=== PATIENT | male | born 1975 | race American Indian/Alaskan Native ===

== ENCOUNTER 2018-11-20 13:32 | Emergency (ER) | payer SELFPAY ==
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
[2018-11-20 15:07] VITALS: BP 181/112
--- NOTE | 2018-11-20 16:48 | XRay Report ---
PROCEDURE: XR KNEE 3V LT TECHNIQUE: Left knee, 3 views HISTORY: swelling/pain COMPARISONS: None available FINDINGS: There are tricompartmental osteoarthritic changes, with joint space narrowing and osteophyte formatio n. No fracture or dislocation is seen. Joint effusion is present. IMPRESSION: No fracture or dislocation. This document is electronically signed by Griselda Montemayor MD., November 20 2018 04:46:16 PM ET
[2018-11-20] MEDS ORDERED: MOTRIN PO ONE (17:08)
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
== END 2018-11-20 17:24 | disposition home or self-care (01) ==
LOC: ED 13:32
DX: M25.462 Effusion, left knee (principal)

== ENCOUNTER 2021-01-22 10:06 | Emergency (ER) | payer BC, OTHER ==
--- NOTE | 2021-01-22 10:47 | Emergency Department Report ---
ED Extremity Problem HPI - General Chief complaint: Extremity Injury, Lower Stated complaint: LT KNEE PAIN Time Seen by Provider: 01/22/21 10:46 Source: patient Mode of arrival: Ambulatory Limitations: No Limitations - History of Present Illness MD Complaint: joint swelling, joint paint -: Gradual Severity scale (0 -10): 8 - Related Data Previous Rx's Medication Instructions Recorded Last Taken Type Ibuprofen [Ibu] 800 mg PO Q8H PRN #20 tablet 11/20/18 Unknown Rx traMADoL [Ultram] 50 mg PO Q6HR PRN #12 tablet 11/20/18 Unknown Rx Allergies Allergy/AdvReac Type Severity Reaction Status Date / Time No Known Allergies Allergy Unverified 11/20/18 13:35 ED Review of Systems ROS: Stated complaint: LT KNEE PAIN Other details as noted in HPI ED Past Medical Hx - Past Medical History Previous Medical History?: No - Surgical History Past Surgical History?: No - Social History Smoking Status: Never Smoker - Medications Home Medications: Home Medications Medication Instructions Recorded Confirmed Last Taken Type Ibuprofen [Ibu] 800 mg PO Q8H PRN #20 tablet 11/20/18 Unknown Rx traMADoL [Ultram] 50 mg PO Q6HR PRN #12 tablet 11/20/18 Unknown Rx ED Physical Exam - General Limitations: No Limitations ED Course Vital Signs 01/22/21 10:40 Temperature 98.4 F Pulse Rate 71 Respiratory 20 Rate Blood Pressure 192/112 [Right] O2 Sat by Pulse 98 Oximetry Critical care attestation.: If time is entered above; I have spent that time in minutes in the direct care of this critically ill patient, excluding procedure time. ED Disposition Condition: Stable
--- NOTE | 2021-01-22 10:54 | Emergency Department Report ---
ED Extremity Problem HPI - General Chief complaint: Extremity Injury, Lower Stated complaint: LT KNEE PAIN Time Seen by Provider: 01/22/21 10:46 Source: patient Mode of arrival: Ambulatory Limitations: No Limitations - History of Present Illness Initial comments: 45-year-old male with a past medical history of hypertension, currently not compliant with his medication and obesity presents to the ER today with complaints of left knee pain. Patient states that the pain started about a week and a half ago. 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 He reports pain mainly to the anterior medial aspect of the knee as well as swelling. He states that the pain is worse with ambulation and flexion of the knee. He denies any prior issues with the knee in the past. Has not been taking anything for pain. MD Complaint: joint swelling, joint paint -: Gradual, week(s) (1.5 weeks ago ) Severity scale (0 -10): 8 - Related Data Previous Rx's Medication Instructions Recorded Last Taken Type Amlodipine Besylate [Norvasc] 5 mg PO DAILY #30 tablet 01/22/21 Unknown Rx Ketorolac [Toradol] 10 mg PO Q6H PRN #20 tablet 01/22/21 Unknown Rx Tramadol HCl/Acetaminophen 1 each PO Q6H PRN #12 tablet 01/22/21 Unknown Rx [Ultracet Tablet] Allergies Allergy/AdvReac Type Severity Reaction Status Date / Time No Known Allergies Allergy Unverified 11/20/18 13:35 ED Review of Systems ROS: Stated complaint: LT KNEE PAIN Other details as noted in HPI Comment: All other systems reviewed and negative Musculoskeletal: joint swelling, arthralgia ED Past Medical Hx - Past Medical History Previous Medical History?: No - Surgical History Past Surgical History?: No - Social History Smoking Status: Never Smoker - Medications Home Medications: Home Medications Medication Instructions Recorded Confirmed Last Taken Type Amlodipine Besylate [Norvasc] 5 mg PO DAILY #30 tablet 01/22/21 Unknown Rx Ketorolac [Toradol] 10 mg PO Q6H PRN #20 tablet 01/22/21 Unknown Rx Tramadol HCl/Acetaminophen 1 each PO Q6H PRN #12 tablet 01/22/21 Unknown Rx [Ultracet Tablet] ED Physical Exam - General Limitations: No Limitations General appearance: alert, in no apparent distress, obese - Head Head exam: Present: atraumatic, normocephalic, normal inspection - Eye Eye exam: Present: normal appearance, PERRL, EOMI Pupils: Present: normal accommodation - Neck Neck exam: Present: normal inspection, full ROM - Respiratory Respiratory exam: Absent: respiratory distress - Cardiovascular Cardiovascular Exam: Present: regular rate - Expanded Lower Extremity Exam Left Knee exam: Present: normal inspection, tenderness (Tenderness to palpation mainly anterior, posterior and medial knee), swelling (Very mild swelling compared to the right knee). Absent: full ROM (Flexion reduced to about 90 degrees secondary to pain), abrasion, laceration, ecchymosis, deformity, crepidus, dislocation, erythema Lower Leg exam: Present: normal inspection. Absent: tenderness, swelling, abrasion, laceration, ecchymosis, deformity, crepidus, dislocation, erythema, palpable cord, Kamron's sign Gait: Positive: observed and limited by pain - Neurological Exam Neurological exam: Present: alert, oriented X3, CN II-XII intact - Psychiatric Psychiatric exam: Present: normal affect, normal mood - Skin Skin exam: Present: intact ED Course Vital Signs 01/22/21 01/22/21 10:40 12:28 Temperature 98.4 F Pulse Rate 71 72 Respiratory 20 Rate Blood Pressure 192/112 197/106 [Right] O2 Sat by Pulse 98 Oximetry ED Medical Decision Making - Radiology Data Radiology results: report reviewed Patient: NORM OROSCO MR#: [id number] : 1975 Acct:[id number] Age/Sex: 45 / M ADM Date: 01/22/21 Loc: ED Attending Dr: Ordering Physician: NALDO SAUCEDA Date of Service: 01/22/21 Procedure(s): XR knee 3V LT Accession Number(s): [id number] cc: NALDO SAUCEDA Fluoro Time In Minutes: LEFT KNEE 3 VIEWS INDICATION: knee pain and swelling. COMPARISON: None. IMPRESSION: No acute osseous or soft tissue abnormality. Moderate osteoarthritic changes are identified in the medial compartment and patellofemoral compartment. A moderate joint effusion is noted on the lateral image. Signer Name: Musa Walker Jr, MD Signed: 01/22/2021 12:01 PM Workstation Name: [id number] Transcribed By: TTR Dictated By: MUSA WALKER JR, MD Electronically Authenticated By: MUSA WALKER JR, MD Signed Date/Time: 01/22/211200 DD/ 00 TD/TT: - Medical Decision Making 45-year-old male with a past medical history of hypertension, currently not compliant with his medication and obesity presents to the ER today with complaints of left knee pain. Patient states that the pain started about a week and a half ago. 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 He reports pain mainly to the anterior medial aspect of the knee as well as swelling. He states that the pain is worse with ambulation and flexion of the knee. He denies any prior issues with the knee in the past. Has not been taking anything for pain. X-ray of the knee shows DJD and knee effusion. Physical exam does not suggest septic joint, cellulitis, DVT, compartment syndrome, acute arterial occlusion or any other emergent conditions warranting further testing, emergent specialist consult or admission at this time. Discussed x-ray results with patient. Leobardo wrap applied. Recommend elevation as much as possible of his leg. Instructed him that he needs to follow-up with call specialist. Patient blood pressure noted to be elevated at triage but again he has been out of his medications for a while he does not recall the name of the medications. He does not currently have any symptoms related to his high blood pressure and therefore no indication for any emergent treatment or testing at this time. Patient will be started on amlodipine, and given referral to local PCP for continued monitoring of his blood pressure. He is not toxic, is not ill- appearing he is not in any significant distress, and he is neurologically intact. patient stable at time of discharge. Critical care attestation.: If time is entered above; I have spent that time in minutes in the direct care of this critically ill patient, excluding procedure time. ED Disposition Clinical Impression: Left knee DJD, Knee effusion, left, Uncontrolled hypertension, Non compliance w medication regimen Disposition: - TO HOME OR SELFCARE Is pt being admited?: No Does the pt Need Aspirin: No Condition: Stable Instructions: Knee Effusion, [id number], Osteoarthritis, Hypertension, Adult, [id number], Hypertension (ED) Additional Instructions: I recommend that she elevate your leg as often as possible. Take the Toradol and Ultracet as prescribed to help with the pain. It is important that you follow-up with call specialist listed on your discharge instructions for further treatment and evaluation of your knee. Recommend that you start taking her blood pressure medication prescribed here today and it is also important that you follow-up with the primary care doctor listed on your discharge instructions for continued monitoring of your blood pressure. Return to the ER if your symptoms changes or worsens in any way. Prescriptions: Amlodipine Besylate [Norvasc] 5 mg PO DAILY #30 tablet Ketorolac [Toradol] 10 mg PO Q6H PRN #20 tablet PRN Reason: Pain Tramadol HCl/Acetaminophen [Ultracet Tablet] 1 each PO Q6H PRN #12 tablet PRN Reason: Pain Referrals: CALE ORTEGA MD [Staff Physician] - 3-5 Days (Primary care physician) YUDELKA CAMPA MD [Staff Physician] - 3-5 Days (addiction specialist) Forms: Work/School Release Form(ED) Time of Disposition: 12:24
--- NOTE | 2021-01-22 12:06 | XRay Report ---
LEFT KNEE 3 VIEWS INDICATION: knee pain and swelling. COMPARISON: None. IMPRESSION: No acute osseous or soft tissue abnormality. Moderate osteoarthritic changes are iden tified in the medial compartment and patellofemoral compartment. A moderate joint effusion is noted o n the lateral image. Signer Name: Musa Walker Jr, MD Signed: 01/22/2021 12:01 PM Workstation Name: [id number]
[2021-01-22 12:32] VITALS: BP 197/106
== END 2021-01-22 13:00 | disposition home or self-care (01) ==
LOC: ED 10:06
DX: M17.12 Unilateral primary osteoarthritis, left knee (principal); M25.462 Effusion, left knee; I10 Essential (primary) hypertension; Z91.19 Patient's noncompliance with other medical treatment and regimen; Z79.899 Other long term (current) drug therapy
CPT/HCPCS: 99283